=== PATIENT | female | born 1975 | race Caucasian/White ===

== ENCOUNTER 2018-05-31 09:21 | Emergency (ER) | payer MEDICAID ==
[~2018-05-31] VITALS: Ht 157.5 cm; Wt 102.3 kg
[2018-05-31 09:30] VITALS: BP 117/78
[2018-05-31] MEDS ORDERED: CLIN150C2 PO (10:21)
[2018-05-31] MEDS ORDERED: ALBU18HF2 INH (10:21)
[2018-05-31] MEDS ORDERED: IBUP-1985 PO (10:29)
== END 2018-05-31 10:29 | disposition home or self-care (01) ==
LOC: ER 09:22
DX: K04.7 Periapical abscess without sinus (principal); J45.909 Unspecified asthma, uncomplicated; K02.9 Dental caries, unspecified; Z88.5 Allergy status to narcotic agent; Z88.2 Allergy status to sulfonamides; Z88.8 Allergy status to other drugs, medicaments and biological substances; Z79.2 Long term (current) use of antibiotics; Z79.899 Other long term (current) drug therapy
CPT/HCPCS: 99283